=== PATIENT | male | born 1950 | race Caucasian/White ===

== ENCOUNTER 2019-09-02 10:26 | Outpatient (RCR) | payer MEDICARE, OTHER, SELFPAY | END 2019-09-20 23:59 | disposition home or self-care (01) | LOC: SPT 10:26 | PROVIDERS: Family Provider Internal Medicine; Referring Provider Chiropractor; Visit Provider Chiropractor | DX: M54.5 Low back pain (principal); M79.605 Pain in left leg | CPT/HCPCS: 97110; 97161 ==

== ENCOUNTER 2019-09-21 06:00 | Outpatient (RCR) | payer MEDICARE, OTHER, SELFPAY | END 2019-09-25 23:00 | disposition home or self-care (01) | LOC: SPT 06:00 | PROVIDERS: Family Provider Internal Medicine; Referring Provider Chiropractor; Visit Provider Chiropractor | DX: M54.5 Low back pain (principal); M79.605 Pain in left leg | CPT/HCPCS: 97110 ==

== ENCOUNTER → 2021-01-31 13:28 | Outpatient (BNVA) | payer MEDICARE, OTHER, SELFPAY | PROVIDERS: Family Provider Internal Medicine; Visit Provider Nurse Practitioner Family | DX: Z20.828 Contact with and (suspected) exposure to other viral communicable diseases (principal) | CPT/HCPCS: 87635 ==